=== PATIENT | female | born 1970 | race Caucasian/White ===

== ENCOUNTER 2018-01-24 10:39 | Outpatient (CLI) | payer OTHER | END 2018-01-24 11:57 | disposition home or self-care (01) | LOC: RAD 10:39 | DX: Z01.810 Encounter for preprocedural cardiovascular examination (principal); I10 Essential (primary) hypertension ==

== ENCOUNTER 2018-08-13 10:14 | Outpatient (CLI) | payer OTHER | END 2018-08-13 16:49 | disposition home or self-care (01) | LOC: MAMO-SONO 10:14 | DX: Z12.31 Encounter for screening mammogram for malignant neoplasm of breast (principal); Z12.39 Encounter for other screening for malignant neoplasm of breast ==

== ENCOUNTER 2019-07-15 07:53 | Outpatient (CLI) | payer OTHER | END 2019-07-15 07:59 | disposition home or self-care (01) | LOC: SONOGRAMA 07:53 | DX: E03.8 Other specified hypothyroidism (principal); E04.8 Other specified nontoxic goiter ==

== ENCOUNTER 2020-04-06 09:59 | Outpatient (CLI) | payer OTHER | END 2020-04-06 10:02 | disposition home or self-care (01) | LOC: SONOGRAMA 09:59 | PROVIDERS: ATTEND Pathology Anatomic Pathology & Clinical Pathology | DX: E04.1 Nontoxic single thyroid nodule (principal) ==

== ENCOUNTER 2020-05-25 07:44 | Outpatient (CLI) | payer OTHER | END 2020-05-25 10:16 | disposition home or self-care (01) | LOC: NUCLEAR 07:44 | PROVIDERS: ATTEND Specialist | DX: D35.1 Benign neoplasm of parathyroid gland (principal) | CPT/HCPCS: 78072; A9500 ==

== ENCOUNTER 2022-06-21 13:46 | Outpatient (CLI) | payer OTHER | END 2022-06-21 13:56 | disposition home or self-care (01) | LOC: MAMO-SONO 13:46 | PROVIDERS: ATTEND Obstetrics & Gynecology | DX: N60.11 Diffuse cystic mastopathy of right breast (principal); N60.12 Diffuse cystic mastopathy of left breast ==

== ENCOUNTER 2023-09-04 12:48 | Outpatient (CLI) | payer OTHER | END 2023-09-04 12:55 | disposition home or self-care (01) | LOC: MAMO-SONO 12:48 | PROVIDERS: ATTEND Obstetrics & Gynecology | DX: N60.11 Diffuse cystic mastopathy of right breast (principal); N60.12 Diffuse cystic mastopathy of left breast; Z12.31 Encounter for screening mammogram for malignant neoplasm of breast ==

== ENCOUNTER 2024-01-02 07:04 | Outpatient (CLI) | payer OTHER | END 2024-01-02 07:06 | disposition home or self-care (01) | LOC: SONOGRAMA 07:04 | PROVIDERS: ATTEND Internal Medicine Cardiovascular Disease | DX: R10.9 Unspecified abdominal pain (principal) ==

== ENCOUNTER 2024-04-17 08:00 | Emergency (ER) | payer OTHER ==
[~2024-04-17] VITALS: Ht 165.1 cm; Wt 88.5 kg
[~2024-04-17 08:00] MED LIST: ALEGRA PO; CALCITRIOL; CATAFLAM50 MG PO; CLARITIN10 M1 PO; DAFLONEX-XL TA1 EACH PO; NAPR500T14 PO; NEXIUM40 M1 PO; PREMARIN0.45 MG PO; PREVACID PO; PREVACID15 MG PO; PROTONIX40 MG PO; TOPROL XL50 M1 PO; VASOFLEX FORTE1 CAP PO; ZESTRIL10 M1 PO; [UNRECOGNIZED DRUG - OTHER] PO
[2024-04-17] MEDS ORDERED: DEXAMETHASONE SODIUM PHOSPHATE 4 MG/ML VIAL IM STA (08:25)
== END 2024-04-17 08:51 | disposition home or self-care (01) ==
LOC: ER 08:00
DX: R21 Rash and other nonspecific skin eruption (principal); I10 Essential (primary) hypertension; Z88.8 Allergy status to other drugs, medicaments and biological substances; Z91.040 Latex allergy status

== ENCOUNTER 2024-04-21 04:50 | Emergency (ER) | payer OTHER ==
[~2024-04-21] VITALS: Ht 165.1 cm; Wt 86.2 kg
[2024-04-21] MEDS ORDERED: HYOSCYAMINE SULFATE 0.125 MG TAB.SUBL SL STA (05:29)
[2024-04-21] MEDS ORDERED: ONDANSETRON HCL 2 MG/ML VIAL IV STA (05:30)
[2024-04-21] MEDS ORDERED: FAMOtidine 10 MG/ML (4ML VIAL) IV PUSH STA (05:30)
[2024-04-21] MEDS ORDERED: KETOROLAC TROMETHAMINE 30 MG VIAL IV STA (06:30)
== END 2024-04-21 06:38 | disposition home or self-care (01) ==
LOC: ER 04:52
DX: K29.70 Gastritis, unspecified, without bleeding (principal); R12 Heartburn; Z88.8 Allergy status to other drugs, medicaments and biological substances; Z91.040 Latex allergy status

== ENCOUNTER 2024-06-22 09:50 | Emergency (ER) | payer OTHER ==
[~2024-06-22] VITALS: Ht 165.1 cm; Wt 86.2 kg
[2024-06-22] MEDS ORDERED: FAMOtidine 10 MG/ML (4ML VIAL) IV ONE (11:45)
[2024-06-22] MEDS ORDERED: FAMOTIDINE/PF 20 MG/2 ML VIAL ONE (12:06)
== END 2024-06-22 13:45 ==
LOC: ER 09:51
DX: K29.70 Gastritis, unspecified, without bleeding (principal); K21.9 Gastro-esophageal reflux disease without esophagitis; I10 Essential (primary) hypertension; Z91.040 Latex allergy status; Z88.6 Allergy status to analgesic agent; R12 Heartburn

== ENCOUNTER 2024-07-17 11:09 | Inpatient (IN) | payer OTHER ==
[~2024-07-17] VITALS: Ht 165.1 cm; Wt 184.6 kg
[2024-07-17] MEDS ORDERED: PEPCID AC20 MG PO (11:45)
[2024-07-17] MEDS ORDERED: FAMOtidine 10 MG/ML (4ML VIAL) IV ONE (12:30)
[2024-07-17] MEDS ORDERED: MEPERIDINE HCL/PF 25 MG/ML VIAL IM ONE ×2 (12:30→19:00)
[2024-07-17 13:29] LABS: HEMATOCRIT 38.2 % (36.0-45.00); HEMOGLOBIN 12.9 g/dL (12.0-15.00); MEAN CELL VOLUME 87.3 fL (80.00-100.00); MEAN CORPUSCULAR HEMOGLOBIN 29.5 pg (27.00-32.0); MEAN CORPUSCULAR HGB CONC 33.8 g/dl (32.0-36.0); PLATELET COUNT 179 K/uL (150-450); RED BLOOD COUNT 4.37 M/uL (4.00-6.00); RED CELL DISTRIBUTION WIDTH 12.8 % (11.5-14.5)
[2024-07-17 14:33] LABS: ALBUMIN 3.9 gm/dL (3.4-5.0); BILIRUBIN TOTAL 0.46 mg/dL (0.3-1.2); CALCIUM 9.2 mg/dL (8.5-10.1); CREATININE SERUM 0.72 mg/dL (0.55-1.02); GFR 84.41; GLOBULINA 3.1 G/DL (2.4-3.5); POTASSIUM 4.18 mEq/L (3.5-5.1)
[2024-07-17] MEDS ORDERED: PIPERACILLIN/TAZOBACTAM SODIUM 3.375 GM in 0.9 % SODIUM CHLORIDE 100 ML IV SCH (18:59)
[2024-07-17] MEDS ORDERED: 0.9 % SODIUM CHLORIDE 1,000 ML IV SCH (19:00)
[2024-07-17] MEDS ORDERED: MEPERIDINE HCL/PF 25 MG/ML VIAL IM PRN (19:00)
[2024-07-17] MEDS ORDERED: ACETAMINOPHEN 500 MG GEL..CAP PO PRN (19:00)
[2024-07-17] MEDS ORDERED: KETOROLAC TROMETHAMINE 15 MG VIAL IU SCH (19:00)
[2024-07-17] MEDS ORDERED: ONDANSETRON HCL 4 MG in 0.9 % SODIUM CHLORIDE 50 ML IV PRN (19:15)
[2024-07-17] MEDS ORDERED: KETOROLAC TROMETHAMINE 30 MG VIAL IV SCH (21:00)
[2024-07-18 01:37] VITALS: BP 137/81; O2SAT 96
[2024-07-18 02:03] LABS: URINE APPEARANCE Clear; URINE BILIRRUBIN Negative (NEGATIVE); URINE BLOOD Negative; URINE COLOR Yellow; URINE GLUCOSE Negative (NEGATIVE); URINE KETONE Trace (NEGATIVE); URINE LEUKOCYTE Negative; URINE NITRATE Negative; URINE PROTEIN Negative (NEGATIVE); URINE UROBILINOGEN 0.2 E.U./dl
[2024-07-18 02:08] LABS: URINE EPITHELIAL CELLS 14.9 uL (0.0-38.8); URINE RBC 4.2 uL (0.0-20.8); URINE WBC 2.1 uL (0.0-23.2)
[2024-07-18 07:09] LABS: INR 1.1; PARTIAL THROMBOPLASTIN TIME 32.4 SECONDS (22.0-34.0); PROTHROMBIN TIME 11.9 SECONDS (9.0-11.5)
[2024-07-18 08:37] VITALS: BP 171/76; O2SAT 99
[2024-07-18] MEDS ORDERED: FAMOTIDINE/PF 20 MG in 0.9 % SODIUM CHLORIDE 8 ML IV PUSH SCH (09:00)
[2024-07-18] MEDS ORDERED: METOPROLOL SUCCINATE 50 MG TAB.SR.24H PO SCH (09:00)
[2024-07-18] MEDS ORDERED: LISINOPRIL 10 MG TABLET PO SCH (09:00)
[2024-07-18 16:48] VITALS: BP 151/81
[2024-07-18] MEDS ORDERED: ONDANSETRON HCL 2 MG/ML VIAL IV NR (19:15)
[2024-07-18] MEDS ORDERED: MEPERIDINE HCL/PF 25 MG/ML VIAL IV PRN (19:15)
[2024-07-18] MEDS ORDERED: MORPHINE SULFATE 4 MG in 0.9 % SODIUM CHLORIDE 9 ML IV PRN (19:15)
[2024-07-18] MEDS ORDERED: THROMBIN,HU/FIBRINOGEN/CALCIUM 10 ML SYRINGE TOP ONE (20:30)
[2024-07-18] MEDS ORDERED: VISTASEAL DUAL APPICATOR 1 EACH APPL TOP ONE (20:30)
[2024-07-18] MEDS ORDERED: MEPERIDINE HCL 25 MG/ML AMPUL IV ONE ×2 (21:25→21:55)
[2024-07-19 01:53] VITALS: BP 137/82; O2SAT 98
[2024-07-19 10:52] VITALS: BP 145/78; O2SAT 97
[2024-07-19] MEDS ORDERED: FAMOTIDINE/PF 20 MG in 0.9 % SODIUM CHLORIDE 8 ML IV PUSH SCH (21:00)
== END 2024-07-19 15:25 | disposition home or self-care (01) | DRG 419 ==
LOC: ER 11:10 → MEDI 19:50
PROVIDERS: General Practice; Specialist; ADMIT Internal Medicine; ATTEND Internal Medicine
PROC: BW40ZZZ Ultrasonography of Abdomen (ICD-10-PCS; 2024-07-17)
PROC: BF37ZZZ Magnetic Resonance Imaging (MRI) of Pancreas (ICD-10-PCS; 2024-07-17)
PROC: BF13YZZ Fluoroscopy of Gallbladder and Bile Ducts using Other Contrast (ICD-10-PCS; 2024-07-18)
PROC: 0FT44ZZ Resection of Gallbladder, Percutaneous Endoscopic Approach (ICD-10-PCS; principal; 2024-07-18 18:30)
DX: K80.10 Calculus of gallbladder with chronic cholecystitis without obstruction (principal); K83.8 Other specified diseases of biliary tract

== ENCOUNTER 2024-11-26 13:24 | Outpatient (CLI) | payer OTHER ==
[~2024-11-26 13:24] MED LIST changes: +PEPCID AC20 MG PO
== END 2024-11-26 13:26 | disposition home or self-care (01) ==
LOC: MAMO-SONO 13:24
DX: E04.8 Other specified nontoxic goiter (principal); N64.4 Mastodynia; Z12.31 Encounter for screening mammogram for malignant neoplasm of breast

== ENCOUNTER 2024-12-01 10:05 | Emergency (ER) | payer OTHER ==
[~2024-12-01] VITALS: Ht 165.1 cm; Wt 86.2 kg
== END 2024-12-01 14:16 | disposition home or self-care (01) ==
LOC: ER 10:08
DX: S62.666A Nondisplaced fracture of distal phalanx of right little finger, initial encounter for closed fracture (principal); X58.XXXA Exposure to other specified factors, initial encounter; Y93.89 Activity, other specified; Y92.018 Other place in single-family (private) house as the place of occurrence of the external cause; Y99.9 Unspecified external cause status; I10 Essential (primary) hypertension; Z88.8 Allergy status to other drugs, medicaments and biological substances; Z91.040 Latex allergy status

== ENCOUNTER 2025-01-24 13:21 | Emergency (ER) | payer OTHER ==
[~2025-01-24] VITALS: Ht 165.1 cm; Wt 87.5 kg
[2025-01-24] MEDS ORDERED: ZYRTEC10 MG PO (13:43)
[2025-01-24] MEDS ORDERED: FAMOtidine 10 MG/ML (4ML VIAL) IV STA (14:16)
[2025-01-24] MEDS ORDERED: ONDANSETRON HCL 2 MG/ML VIAL IV ONE (14:30)
[2025-01-24] MEDS ORDERED: METOCLOPRAMIDE HCL 10 MG in DEXTROSE 5 % IN WATER 50 ML IV ONE (14:30)
[2025-01-24] MEDS ORDERED: ONDANSETRON HCL 2 MG/ML VIAL ONE (14:34)
[2025-01-24] MEDS ORDERED: FAMOTIDINE/PF 20 MG/2 ML VIAL ONE (14:34)
[2025-01-24] MEDS ORDERED: METOCLOPRAMIDE HCL 5 MG/ML VIAL ONE (14:34)
[2025-01-24 14:50] LABS: HEMOGLOBIN 13.5 g/dL (12.0-15.00); MEAN CELL VOLUME 87.5 fL (80.00-100.00); MEAN CORPUSCULAR HEMOGLOBIN 29.5 pg (27.00-32.0); MEAN CORPUSCULAR HGB CONC 33.7 g/dl (32.0-36.0); PLATELET COUNT 170 K/uL (150-450); RED BLOOD COUNT 4.58 M/uL (4.00-6.00); RED CELL DISTRIBUTION WIDTH 13.5 % (11.5-14.5)
[2025-01-24 15:30] LABS: CALCIUM 9.4 mg/dL (8.5-10.1); CREATININE SERUM 0.75 mg/dL (0.55-1.02); GFR 80.23; POTASSIUM 4.48 mEq/L (3.5-5.1)
[2025-01-24 16:06] LABS: URINE APPEARANCE Cloudy; URINE BILIRRUBIN Negative (NEGATIVE); URINE BLOOD Negative; URINE COLOR Yellow; URINE GLUCOSE Negative (NEGATIVE); URINE KETONE Negative (NEGATIVE); URINE LEUKOCYTE Negative; URINE NITRATE Negative; URINE PROTEIN Negative (NEGATIVE)
[2025-01-24 16:09] LABS: URINE BACTERIA 537.2 uL (0.0-1933); URINE EPITHELIAL CELLS 12.1 uL (0.0-38.8); URINE RBC 5.4 uL (0.0-20.8); URINE WBC 11.7 uL (0.0-23.2)
[2025-01-24 16:24] LABS: URINE CAST 0.14 uL (0.0-1.40)
[2025-01-24] MEDS ORDERED: PROTONIX40 MG PO (17:05)
[2025-01-24] MEDS ORDERED: ZOFRAN8 MG PO (17:05)
== END 2025-01-24 17:26 | disposition home or self-care (01) ==
LOC: ER 13:22
PROVIDERS: General Practice
DX: K52.9 Noninfective gastroenteritis and colitis, unspecified (principal); I10 Essential (primary) hypertension; E03.9 Hypothyroidism, unspecified; Z88.8 Allergy status to other drugs, medicaments and biological substances; Z91.040 Latex allergy status